=== PATIENT | male | born 1945 | race Caucasian/White ===

== ENCOUNTER 2021-02-20 15:20 | Outpatient (NON) | payer MEDICARE, SELFPAY ==
[2021-02-20 17:02] LABS: Alanine Aminotransferase 28 U/L (16-63); Albumin Level 3.4 g/dL (3.4-5.0); Alkaline Phosphatase 163 U/L (46-116); Anion Gap 10 mmol/L (8-16); Aspartate Amino Transferase 77 U/L (15-37); Bilirubin,Total 0.4 mg/dL (0.00-1.00); Blood Urea Nitrogen 25 mg/dL (7-18); Carbon Dioxide 25 mmol/L (21-32); Chloride 103 mmol/L (98-108); Estimated Glomerular Filt Rate 34; Glucose 150 mg/dL (70-99); Osmolality Calculated 293 mOsm/kg (285-295); Potassium 5.2 mmol/L (3.5-5.1); Sodium 138 mmol/L (136-145); Total Protein 6.5 g/dL (6.4-8.2)
[2021-02-20 17:21] LABS: Calcium 13.6 mg/dL (8.5-10.1)
== END 2021-02-20 15:21 | disposition home or self-care (01) ==
LOC: CHSLAB 16:16
DX: E83.52 Hypercalcemia (principal)
CPT/HCPCS: 36415; 80053